=== PATIENT | female | born 1975 | race Caucasian/White ===

== ENCOUNTER 2016-08-04 17:01 | Emergency (ER) | payer BC ==
[~2016-08-04] VITALS: Ht 172.7 cm; Wt 104.0 kg
[2016-08-04 17:44] LABS: MCH 28.8 PG (29.0-34.0); MCHC 34.9 G/DL (30.0-36.0); MCV 82.5 FL (83-99); MEAN PLAT.VOLUME 9.5 uM^3 (9.5-12.4); PLATELET COUNT 314 K/uL (156-360); RBC DIS.WIDTH-CV 13.7 % (11.8-14.6); RBC DIS.WIDTH-SD 40.5 % (39-53); RED BLOOD COUNT 4.73 M/uL (3.80-5.20); WHITE BLOOD COUNT 9.2 K/uL (4.1-10.2)
[2016-08-04 17:55] LABS: CHLORIDE 105 mEq/L (99-109); POTASSIUM 3.5 mEq/L (3.7-5.4); SODIUM 139 mEq/L (136-147)
[2016-08-04 17:57] LABS: GLUCOSE 106 mg/dL (70-99)
[2016-08-04 17:58] LABS: ANION GAP 12 MEQ/L (2-14)
[2016-08-04 17:59] LABS: TOTAL BILIRUBIN 0.6 mg/dL (0.0-1.0)
[2016-08-04 18:01] LABS: ALKALINE PHOSPHATASE 48 IU/L (3-129)
[2016-08-04 18:02] LABS: UREA NITROGEN (BUN) 9 mg/dL (9-23)
[2016-08-04 18:03] LABS: GFR ESTIMATE (CALCULATED) > 59 mL/min/
[2016-08-04 18:36] LABS: ADD MIUA? YES; BILIRUBIN NEGATIVE; BLOOD TRACE; COLOR YELLOW ((YELLOW)); GLUCOSE (STRIP) NEGATIVE; KETONES >=80; LEUKOCYTES SMALL; NITRITE NEGATIVE; PH, URINE 5.5 (5-8); PROTEIN (STRIP) TRACE; SPECIFIC GRAVITY 1.033 (1.000-1.030); UROBILINOGEN 0.2 MG/DL (0.2-1.0)
[2016-08-04 19:02] LABS: BACTERIA 2+; CALCIUM OXALATE CRYSTALS 1+; CASTS NONE SEEN /LPF; CRYSTALS PRESENT; EPITHELIAL CELLS 1+; MUCUS 1+; RED BLOOD CELLS 0-5 /HPF (0-5); UCUL ADDED? NO; WHITE BLOOD CELLS 0-5 /HPF (0-5)
[2016-08-04] MEDS ORDERED: ATIVAN0.5 MG PO (19:25)
[2016-08-04] MEDS ORDERED: KEFLEX500 MG PO (19:25)
[2016-08-04 19:48] VITALS: BP 145/87
== END 2016-08-04 19:49 | disposition home or self-care (01) ==
LOC: EME 17:01
DX: R03.0 Elevated blood-pressure reading, without diagnosis of hypertension (principal); F41.9 Anxiety disorder, unspecified; N39.0 Urinary tract infection, site not specified
CPT/HCPCS: 80053; 81003; 85027; 87086; 99281; 99284